=== PATIENT | female | born 1960 | race Caucasian/White ===

== ENCOUNTER 2019-05-18 10:57 | Day surgery (SDC) | payer OTHER ==
[2019-05-18] MEDS ORDERED: FENTAnyl 50 MCG/ML VIAL (12:20)
[2019-05-18] MEDS ORDERED: MIDAZOLAM 1 MG/ML 2 ML INJ ×2 (12:20)
== END 2019-05-18 18:05 | disposition home or self-care (01) ==
LOC: GIL 10:57
DX: R19.5 Other fecal abnormalities (principal); K64.8 Other hemorrhoids
CPT/HCPCS: 45378